=== PATIENT | male | born 1955 | race Caucasian/White ===

== ENCOUNTER 2017-05-11 10:58 | Emergency (ER) | payer SELFPAY ==
[2017-05-11] MEDS ORDERED: NACL 0.9% 1000 ML 1,000 ML IV ONE (12:09)
[2017-05-11] MEDS ORDERED: ZOFRAN IV ONE (12:09)
--- NOTE | 2017-05-11 12:18 | Emergency Department Report ---
<GORDOAUBRIE JAMES M - Last Filed: 05/11/17 18:15> ED General Adult HPI - General Chief complaint: Sore Throat Stated complaint: RT EAR PAIN/SORE THROAT/CONGESTION Time Seen by Provider: 05/11/17 11:59 Source: patient Mode of arrival: Ambulatory Limitations: No Limitations - History of Present Illness Initial comments: PT states he has been sick for the past 30-35 days. PT reports sore throat, R ear pain, and chest congestion. PT states 20 days ago, he was coughing up red sputum. PT states since then, it has cleared up and now he is coughing up white sputum. PT also states he has not been able to eat and he has lost 22 lbs. PT states he has taken otc medications for this, but they are not helping. PT states he has a hx of htn and is currently on lisinopril/ hctz. PT does have a 48 year hx of tobacco abuse. PT states he moved from [place] 3 months ago and he has yet to establish primary staff consultant care. PT denies any pertinent family hx MD Complaint: sore throat and cough Onset/Timin -: Gradual, month(s) Location: mouth, chest Severity scale (0 -10): 8 Quality: constant Consistency: constant Improves with: none Associated Symptoms: cough, loss of appetite, malaise, weakness. denies: chest pain, fever/chills, nausea/vomiting, shortness of breath - Related Data Allergies Allergy/AdvReac Type Severity Reaction Status Date / Time No Known Allergies Allergy Unverified 05/11/17 11:03 ED Review of Systems ROS: Stated complaint: RT EAR PAIN/SORE THROAT/CONGESTION Other details as noted in HPI Comment: All other systems reviewed and negative Constitutional: denies: chills, fever ENT: ear pain (R ear ), throat pain Respiratory: cough. denies: shortness of breath, SOB with exertion, SOB at rest Cardiovascular: denies: chest pain, edema Endocrine: unexplained weight loss Gastrointestinal: nausea, other (decrease po intake ). denies: abdominal pain, vomiting Musculoskeletal: back pain Neurological: weakness (generalized fatigue ) ED Past Medical Hx - Past Medical History Hx Hypertension: Yes - Surgical History Past Surgical History?: No - Social History Smoking Status: Current Every Day Smoker Substance Use Type: Alcohol ED Physical Exam - General Limitations: No Limitations General appearance: alert, in no apparent distress, other (thin ) - Head Head exam: Present: atraumatic, normocephalic, normal inspection - Eye Eye exam: Present: normal appearance, PERRL, EOMI. Absent: conjunctival injection - ENT ENT exam: Present: normal exam, normal orophraynx, mucous membranes moist, TM's normal bilaterally, normal external ear exam - Neck Neck exam: Present: normal inspection, full ROM, lymphadenopathy (R ant cervical ) - Respiratory Respiratory exam: Present: rhonchi, prolonged expiratory. Absent: respiratory distress, chest wall tenderness, accessory muscle use, decreased breath sounds - Cardiovascular Cardiovascular Exam: Present: regular rate, normal rhythm, normal heart sounds - GI/Abdominal GI/Abdominal exam: Present: soft, normal bowel sounds. Absent: tenderness - Extremities Exam Extremities exam: Present: normal inspection, full ROM. Absent: pedal edema - Back Exam Back exam: Present: normal inspection, full ROM. Absent: tenderness, CVA tenderness (R), CVA tenderness (L), muscle spasm, paraspinal tenderness, vertebral tenderness - Neurological Exam Neurological exam: Present: alert, oriented X3, CN II-XII intact, normal gait - Expanded Neurological Exam Expanded Patient oriented to: Present: person, place, time Speech: Present: fluid speech Best Eye Response (Allen): (4) open spontaneously Best Motor Response (Rodney): (6) obeys commands Best Verbal Response (Rodney): (5) oriented Allen Total: 15 - Psychiatric Psychiatric exam: Present: normal affect, normal mood - Skin Skin exam: Present: warm, dry, intact, normal color. Absent: rash ED Course Vital Signs 05/11/17 05/11/17 05/11/17 11:03 15:25 16:06 Temperature 98 F 97.4 F L Pulse Rate 96 H 84 Pulse Rate [ 83 Anterior Bilateral Throughout] Respiratory 18 16 Rate Respiratory 20 Rate [Anterior Bilateral Throughout] Blood Pressure 197/67 Blood Pressure 146/79 [Left] O2 Sat by Pulse 99 100 Oximetry - Reevaluation(s) Reevaluation #1: 05/11/17 12:29 PT aware of plan of care. PT has no questions at this time. Reevaluation #2: 05/11/17 15:57 PT states he is feeling better. PT offered po challenge, pt declined. PT states he is scared to try and drink. Spoke to Dr Deras about pt, will order ct soft tissue neck. 05/11/17 17:26 PT aware of abnormal findings on CT and need for admission. PT also aware that he will need to be transferred to a hospital with ENT coverage. PT agrees. Reevaluation #3: 05/11/17 19:03 PT aware of need for transfer. - Consultations Consultation #1: 05/11/17 17:21 Dr Taylor Lutz advises that this pt be transferred to a hospital with ENT coverage Consultation #2: 05/11/17 17:36 [facility] consulted. [facility] is on ER diversion. 05/11/17 17:37 Dr Tesfaye, ENT states she can not accept the pt. Consultation #3: 05/11/17 18:[address] Haider, ER attending at [facility]. Dr Haider wants me to speak with Dr Tim (ENT calibration laboratory technician) per transfer center, they have been unable to reach DR Tim but they will try again. 05/11/17 19:02 Awaiting call from [facility] hospitalist, Dr Deras to take call - Pulse Oximetry Interpretation Digit-Finger Initial Pulse Oximetry Readin Actions Taken: none ED Medical Decision Making - Lab Data Result diagrams: 05/11/17 12:08 05/11/17 12:30 Labs 05/11/17 05/11/17 05/11/17 12:08 12:09 12:09 WBC 12.1 H RBC 3.61 L Hgb 11.2 L Hct 33.5 L MCV 93 MCH 31 MCHC 33 RDW 12.6 L Plt Count 503 H Lymph % (Auto) 14.8 [place] % (Auto) 7.8 H Eos % (Auto) 10.7 H Baso % (Auto) 1.2 Lymph # 1.8 [place] # 0.9 H Eos # 1.3 H Baso # 0.1 Seg Neutrophils % 65.5 Seg Neutrophils # 7.9 H PT INR APTT Sodium Potassium Chloride Carbon Dioxide Anion Gap BUN Creatinine Estimated GFR BUN/Creatinine Ratio Glucose Calcium Total Bilirubin AST ALT Alkaline Phosphatase NT-Pro-B Natriuret Pep Total Protein Albumin Albumin/Globulin Ratio Lipase TSH 1.240 Free T4 1.13 Urine Color Urine Turbidity Urine pH Ur Specific [place] Urine Protein Urine Glucose (UA) Urine Ketones Urine Blood Urine Nitrite Urine Bilirubin Urine Urobilinogen Ur Leukocyte Esterase Urine WBC (Auto) Urine RBC (Auto) U Epithel Cells (Auto) Urine Mucus 05/11/17 05/11/17 05/11/17 12:10 12:30 12:30 WBC RBC Hgb Hct MCV MCH MCHC RDW Plt Count Lymph % (Auto) [place] % (Auto) Eos % (Auto) Baso % (Auto) Lymph # [place] # Eos # Baso # Seg Neutrophils % Seg Neutrophils # PT 14.4 INR 1.13 APTT 25.5 Sodium 138 Potassium 4.7 Chloride 97.8 L Carbon Dioxide 29 Anion Gap 16 BUN 13 Creatinine 0.7 L Estimated GFR > 60 BUN/Creatinine Ratio 18.57 Glucose 112 H Calcium 10.2 Total Bilirubin 0.30 AST 17 ALT 7 Alkaline Phosphatase 64 NT-Pro-B Natriuret Pep 242.2 Total Protein 6.7 Albumin 3.1 L Albumin/Globulin Ratio 0.9 Lipase 11 L TSH Free T4 Urine Color Urine Turbidity Urine pH Ur Specific [place] Urine Protein Urine Glucose (UA) Urine Ketones Urine Blood Urine Nitrite Urine Bilirubin Urine Urobilinogen Ur Leukocyte Esterase Urine WBC (Auto) Urine RBC (Auto) U Epithel Cells (Auto) Urine Mucus 05/11/17 15:03 WBC RBC Hgb Hct MCV MCH MCHC RDW Plt Count Lymph % (Auto) [place] % (Auto) Eos % (Auto) Baso % (Auto) Lymph # [place] # Eos # Baso # Seg Neutrophils % Seg Neutrophils # PT INR APTT Sodium Potassium Chloride Carbon Dioxide Anion Gap BUN Creatinine Estimated GFR BUN/Creatinine Ratio Glucose Calcium Total Bilirubin AST ALT Alkaline Phosphatase NT-Pro-B Natriuret Pep Total Protein Albumin Albumin/Globulin Ratio Lipase TSH Free T4 Urine Color Yellow Urine Turbidity Clear Urine pH 6.0 Ur Specific [place] 1.021 Urine Protein <15 mg/dl Urine Glucose (UA) Neg Urine Ketones Tr Urine Blood Neg Urine Nitrite Neg Urine Bilirubin Neg Urine Urobilinogen 2.0 Ur Leukocyte Esterase Neg Urine WBC (Auto) 1.0 Urine RBC (Auto) 3.0 U Epithel Cells (Auto) 1.0 Urine Mucus 1+ - Radiology Data Radiology results: report reviewed CXR - changes consistent with COPD 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 PT does report a 22 lb wt loss in 1 month due to symptoms. PT's lab work relatively unremarkable. PT's chest xr suggests COPD. CT scan of neck shows large laryngeal cancer. PT will need admission with a facility with ENT and Oncology. PT aware of need for transfer and agrees. - Differential Diagnosis Cancer, hyperthyroid, pna, bronchitis, electrolyte abnormality, ftt, om, oe Critical Care Time: No Critical care attestation.: If time is entered above; I have spent that time in minutes in the direct care of this critically ill patient, excluding procedure time. ED Disposition Clinical Impression: Laryngeal mass Disposition: DC-01 TO HOME OR SELFCARE Is pt being admited?: No Does the pt Need Aspirin: No Condition: Stable Instructions: Chronic Obstructive Pulmonary Disease (ED) Referrals: [facility] [Other] - 3-5 Days (Call Sunday to set up an appointment to be seen.) <CURTIS DERAS - Last Filed: 05/11/17 20:29> ED Medical Decision Making - Lab Data Result diagrams: 05/11/17 12:08 05/11/17 12:30 - Medical Decision Making 2020--I have spoken with Dr. Tesfaye, ENT at [facility]. Presentation, lab, and imaging results were reviewed with Dr. Tesfaye. Patient is having no respiratory distress. Per Dr. Tesfaye, patient can be discharged home to follow up in the clinic for further testing and staging. This was discussed with the patient, who agrees with the plan. ED Disposition Is pt being admited?: No Time of Disposition: 20:28
[2017-05-11 12:47] LABS: Basophils % (Auto) 1.2 % (0.0-1.8); Eosinophils % (Auto) 10.7 % (0.0-4.3); Hematocrit 33.5 % (35.5-45.6); Hemoglobin 11.2 gm/dl (11.8-15.2); Mean Corpuscular HGB Conc 33 % (32-34); Mean Corpuscular Hemoglobin 31 pg (28-32); Mean Corpuscular Volume 93 fl (84-94); Platelet Count 503 K/mm3 (140-440); Red Blood Count 3.61 M/mm3 (3.65-5.03); Red Cell Distribution Width 12.6 % (13.2-15.2); White Blood Count 12.1 K/mm3 (4.5-11.0)
[2017-05-11 13:03] LABS: Albumin 3.1 g/dL (3.9-5); Albumin/Globulin Ratio 0.9 %; Alkaline Phosphatase 64 units/L (35-129); BUN/Creatinine Ratio 18.57; Blood Urea Nitrogen 13 mg/dL (9-20); Calcium 10.2 mg/dL (8.4-10.2); Carbon Dioxide 29 mmol/L (22-30); Chloride 97.8 mmol/L (98-107); Glucose 112 mg/dL (75-100); Lipase 11 units/L (13-60); Sodium 138 mmol/L (137-145); Total Protein 6.7 g/dL (6.3-8.2)
--- NOTE | 2017-05-11 13:22 | XRay Report ---
CHEST XRAY, 2 VIEWS: History: Cough, weight loss. Findings: There is mild diffuse interstitial coarsening. The lungs are hyperexpanded but clear. No infiltrate, pleural fluid or pneumothorax is detected. The cardiac silhouette and pulmonary vasculature are within normal limits for technique. The bony thorax is unremarkable. IMPRESSION: Changes consistent with COPD. No acute cardiopulmonary process.
[2017-05-11 13:28] LABS: INR 1.13 (0.87-1.13)
[2017-05-11 13:29] LABS: Partial Thromboplastin Time 25.5 Sec. (24.2-36.6)
[2017-05-11 13:51] LABS: Alanine Aminotransferase 7 units/L (7-56); Anion Gap 16 mmol/L; Potassium 4.7 mmol/L (3.6-5.0)
[2017-05-11] MEDS ORDERED: DUONEB 0.5 MG-3 MG/3 ML SOLN IH ONE (14:25)
[2017-05-11 15:17] LABS: Bilirubin,Urine NEG (Negative); Blood,Urine NEG (Negative); Ketones,Urine TR mg/dL (Negative); Leukocyte Esterase,Urine NEG (Negative); Mucus,Urine 1+ /HPF; Nitrite,Urine NEG (Negative); Protein,Urine <15 mg/dL mg/dL (Negative)
[2017-05-11] MEDS ORDERED: TORADOL IV ONE (15:42)
[2017-05-11] MEDS ORDERED: NACL ONE (16:19)
--- NOTE | 2017-05-11 16:57 | Cat Scan Report ---
CT NECK WITH CONTRAST: 05/11/17 10:58:00 CLINICAL: Dysphagia and weight loss. TECHNIQUE: Volumetric acquisition and 1.25 mm scan reconstructionsafter the uneventful intravenous injection of 100-cc Omnipaque 350. Consent was obtained prior to the administration of the IV contrast. FINDINGS: A lobulated enhancing mass involves the right hypopharynx and larynx and extends from the level of the hyoid bone to inferior to the cricoid cartilage. It erodes the right thyroid cartilage and extends across the midline at the level of the larynx. It measures approximately 6.7 cm craniocaudal dimension by 6.3 cm transverse dimension by 4 cm AP dimension. No lymphadenopathy in the neck. Normal nasopharynx and oropharynx. Vascular structures are normal. The mass extends to the thyroid and displaces portion of the right thyroid lobe. Vascular structures are normal. Degenerative change in cervical spine. IMPRESSION: 1. 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 2. Erosion of the right thyroid cartilage and narrowing of the airway at the level of the hypopharynx. 3. No lymphadenopathy.
[2017-05-11 20:32] VITALS: BP 131/75
== END 2017-05-11 20:40 | disposition home or self-care (01) ==
LOC: ED 10:58
DX: J38.7 Other diseases of larynx (principal); I10 Essential (primary) hypertension; F17.200 Nicotine dependence, unspecified, uncomplicated; H92.01 Otalgia, right ear; R53.1 Weakness; R63.0 Anorexia; R53.83 Other fatigue; R11.0 Nausea
CPT/HCPCS: 36415; 70491; 71020; 80053; 81001; 83690; 83880; 84439; 84443; 85025; 85610; 85730; 94640; 96361; 96374; 96375; 99284; J1885; J2405; J7030; Q9967